=== PATIENT | male | born 1990 | race Caucasian/White ===

== ENCOUNTER 2021-07-28 12:30 | Emergency (ER) | payer OTHER ==
[~2021-07-28] VITALS: Ht 177.8 cm; Wt 97.9 kg
[2021-07-28] MEDS ORDERED: IOHEXOL 300 MG/ML 100ML VIAL. IV ONE (13:30)
[2021-07-28] MEDS ORDERED: CONTRAST GIVEN. MC PRN (13:30)
[2021-07-28] MEDS ORDERED: KETOROLAC 15 MG/ML VIAL. IVP ONE (13:30)
[2021-07-28 13:36] LABS: BASO # 0.1 x10^3/uL (0.0-0.2); BASO % 1 % (0-3); EOS # 0.1 x10^3/uL (0.0-0.7); EOS % 2 % (0-3); HEMATOCRIT 43.8 % (39.0-53.0); HEMOGLOBIN 15.2 g/dL (13.0-17.5); LYMPH # 2.3 x10^3/uL (1.0-4.8); LYMPH % 30 % (24-48); MEAN CORPUSCULAR HEMOGLOBIN 30 pg (25-35); MEAN CORPUSCULAR HGB CONC 35 g/dL (31-37); MEAN CORPUSCULAR VOLUME 88 fL (79-100); MONO # 0.6 x10^3/uL (0.0-1.1); MONO % 8 % (0-9); NEUT # 4.5 x10^3/uL (1.8-7.7); NEUT % 59 % (31-73); PLATELET COUNT 292 x10^3/uL (140-400); RED BLOOD COUNT 5.01 x10^6/uL (4.30-5.70); RED CELL DISTRIBUTION WIDTH 12.3 % (11.5-14.5); WHITE BLOOD COUNT 7.6 x10^3/uL (4.0-11.0)
[2021-07-28 13:49] LABS: CALCIUM 8.9 mg/dL (8.5-10.1); CREATININE 0.9 mg/dL (0.7-1.3); GFR 97.8; POTASSIUM 4.2 mmol/L (3.5-5.1)
[2021-07-28 13:54] LABS: BILIRUBIN,URINE NEGATIVE (NEG); CLARITY,URINE CLEAR; COLOR,URINE YELLOW; NITRITE,URINE NEGATIVE (NEG); PROTEIN,URINE NEGATIVE (NEG-TRACE); UROBILINOGEN,URINE 0.2 mg/dL (0.2 mg/dL)
--- NOTE | 2021-07-28 13:54 | ED.ADGEN ---
Past Medical History Additional Past Medical Histor: TAKES TRAZODONE TO SLEEP Past Surgical History: No Surgical History General Adult EDM: Chief Complaint: MECHANICAL FALL HPI: HPI: Patient is a 31 year old male coming in for left knee and right rib pain after a fall through his ceiling. Patient was in his attic when he went to step or a board should have been but was not and fell through his ceiling. Patient was caught by his upper waist in the ceiling. Is unsure of how he injured his knee. No other complaints, has an abrasion on his back. Tetanus up-to-date patient complaining of pain with taking a deep breath or movement Review of Systems: Review of Systems: All other systems within normal limits except for as noted in the HPI Current Medications: Current Medications Medications (Trade) Dose Ordered Sig/Karri Start Time Stop Time Status Last Admin Dose Admin Fentanyl Citrate (Fentanyl 2ml Vial) 75 mcg 1X ONCE 07/28/21 15:00 07/28/21 15:02 DC Info (CONTRAST GIVEN -- Rx MONITORING) 1 each PRN DAILY PRN 07/28/21 13:30 07/30/21 13:29 Iohexol (Omnipaque 300 Mg/ml) 75 ml 1X ONCE 07/28/21 13:30 07/28/21 13:31 DC 07/28/21 13:30 75 ML Ketorolac Tromethamine (Toradol 15mg Vial) 15 mg 1X ONCE 07/28/21 13:30 07/28/21 13:31 DC 07/28/21 13:33 15 MG Allergies: Allergies: Allergies Uncoded Allergies Type Severity Reaction Last Updated Verified NARCOTICS Adverse Reaction Mild Nausea and Vomiting 07/28/21 Physical Exam: PE: Constitutional: Well developed, well nourished, no acute distress, non-toxic appearance. [] HENT: Normocephalic, atraumatic, bilateral external ears normal, nose normal. [] Eyes: PERRLA, conjunctiva normal, no discharge. [] Neck: No rigidity, supple, no stridor. No C-spine tenderness step-off [] Cardiovascular: Regular rate and rhythm, brisk cap refill [] Lungs & Thorax: Non labored symmetric respirations, no tachypnea or respiratory distress [] Abdomen: Soft, nondistended. Skin: Warm, dry, no erythema, no rash. Abrasion to right back[] Back: Unremarkable, no step-off or deformity spine, tenderness over right posterior Extremities: No deformities, range of motion grossly intact, no lower extremity edema. Tenderness of left knee, no deformity, range of motion intact Neurologic: Alert and oriented X 3, no focal deficits noted. [] Psychologic: Affect normal, judgement normal, mood normal. [] Current Patient Data: Labs: Laboratory Tests Test 07/28/21 12:46 07/28/21 13:36 White Blood Count 7.6 x10^3/uL (4.0-11.0) Red Blood Count 5.01 x10^6/uL (4.30-5.70) Hemoglobin 15.2 g/dL (13.0-17.5) Hematocrit 43.8 % (39.0-53.0) Mean Corpuscular Volume 88 fL (79-100) Mean Corpuscular Hemoglobin 30 pg (25-35) Mean Corpuscular Hemoglobin Concent 35 g/dL (31-37) Red Cell Distribution Width 12.3 % (11.5-14.5) Platelet Count 292 x10^3/uL (140-400) Neutrophils (%) (Auto) 59 % (31-73) Lymphocytes (%) (Auto) 30 % (24-48) Monocytes (%) (Auto) 8 % (0-9) Eosinophils (%) (Auto) 2 % (0-3) Basophils (%) (Auto) 1 % (0-3) Neutrophils # (Auto) 4.5 x10^3/uL (1.8-7.7) Lymphocytes # (Auto) 2.3 x10^3/uL (1.0-4.8) Monocytes # (Auto) 0.6 x10^3/uL (0.0-1.1) Eosinophils # (Auto) 0.1 x10^3/uL (0.0-0.7) Basophils # (Auto) 0.1 x10^3/uL (0.0-0.2) Sodium Level 137 mmol/L (136-145) Potassium Level 4.2 mmol/L (3.5-5.1) Chloride Level 99 mmol/L (98-107) Carbon Dioxide Level 28 mmol/L (21-32) Anion Gap 10 (6-14) Blood Urea Nitrogen 16 mg/dL (8-26) Creatinine 0.9 mg/dL (0.7-1.3) Estimated GFR (Cockcroft-Gault) 97.8 BUN/Creatinine Ratio 18 (6-20) Glucose Level 88 mg/dL (70-99) Calcium Level 8.9 mg/dL (8.5-10.1) Total Bilirubin 0.5 mg/dL (0.2-1.0) Aspartate Amino Transferase (AST) 33 U/L (15-37) Alanine Aminotransferase (ALT) 45 U/L (16-63) Alkaline Phosphatase 87 U/L (46-116) Total Protein 7.7 g/dL (6.4-8.2) Albumin 4.4 g/dL (3.4-5.0) Albumin/Globulin Ratio 1.3 (1.0-1.7) Urine Collection Type Unknown Urine Color Yellow Urine Clarity Clear Urine pH 6.0 (<5.0-8.0) Urine Specific [place] 1.010 (1.000-1.030) Urine Protein Negative mg/dL (NEG-TRACE) Urine Glucose (UA) Negative mg/dL (NEG) Urine Ketones (Stick) Negative mg/dL (NEG) Urine Blood Moderate (NEG) Urine Nitrite Negative (NEG) Urine Bilirubin Negative (NEG) Urine Urobilinogen Dipstick 0.2 mg/dL (0.2 mg/dL) Urine Leukocyte Esterase Negative (NEG) Urine RBC 6-10 /HPF (0-2) Urine WBC 1-4 /HPF (0-4) Urine Squamous Epithelial Cells Few /LPF Urine Bacteria Few /HPF (0-FEW) Urine Sperm Present /HPF Laboratory Tests 07/28/21 12:46 Laboratory Tests 07/28/21 12:46 Vital Signs: Vital Signs Date Time Temp Pulse Resp B/P (MAP) Pulse Ox O2 Delivery O2 Flow Rate FiO2 07/28/21 12:35 98.3 62 14 139/73 (95) 99 Room Air 98.3 EKG: EKG: [] Heart Score: C/O Chest Pain: No Risk Factors: Risk Factors: DM, Current or recent (<one month) smoker, HTN, HLP, family history of CAD, obesity. Risk Scores: Score 0 - 3: 2.5% MACE over next 6 weeks - Discharge Home Score 4 - 6: 20.3% MACE over next 6 weeks - Admit for Clinical Observation Score 7 - 10: 72.7% MACE over next 6 weeks - Early Invasive Strategies Radiology/Procedures: Radiology/Procedures: [place] [phone] IMAGING REPORT Signed PATIENT: KIMBERLY MCGREGOR ACCOUNT: [id number] : 1990 LOCATION: ER AGE: 31 SEX: M EXAM STATUS: PRE ER ORD. PHYSICIAN: ISAÍAS ACUNA MD REASON: injury PROCEDURE: KNEE LEFT 3V Examination: 3 views of the left knee HISTORY: History of injury COMPARISON: None available FINDINGS: There is no acute fracture or dislocation identified. The alignment of the knee joint grossly appears unremarkable. IMPRESSION: No acute osseous findings. Electronically signed by: Martinez Joseph MD (07/28/2021 2:05 PM) [id number] DICTATED and SIGNED BY: MARTINEZ JOSEPH MD DATE: 07/28/21 [id number] [][id number] [place] [address] IMAGING REPORT Signed PATIENT: KIMBERLY MCGREGOR ACCOUNT: [id number] : 1990 LOCATION: ER AGE: 31 SEX: M EXAM STATUS: REG ER ORD. PHYSICIAN: ISAÍAS ACUNA MD REASON: trauma, blunt PROCEDURE: CT CHEST ABD PELVIS W/CONTRAST CT CHEST+ABD+PELVIS W History: Trauma. Pain. Technique: CT of the chest, abdomen and pelvis were performed with intravenous contrast. Coronal and sagittal reconstructions were performed. Exposure: One or more of the following individualized dose reduction techniques were utilized for this examination: 1. Automated exposure control 2. Adjustment of the mA and/or kV according to patient size 3. Use of iterative reconstruction technique. Comparison: None Findings: Chest: No pathologic lymphadenopathy. No aortic injury or dissection. No consolidation or pleural effusion. No pneumothorax. Abdomen and pelvis: Tiny left superior hepatic hypodensity, likely cyst. The spleen, adrenal glands, pancreas and gallbladder are unremarkable. No biliary ductal dilatation. Patent portal veins. No renal calculus. No hydronephrosis. Normal appearance of the urinary bladder. Normal appendix. No evidence of bowel obstruction. No pathologic lymphadenopathy. No ascites. Bones: No pathologic osseous lesions. Multilevel Schmorl's nodes. Impression: Chest CT: 1. No acute thoracic pathology. Abdomen and pelvis CT: 1. No acute abdominal or pelvic pathology. Electronically signed by: Ishaan Donohue DO (07/28/2021 3:21 PM) [facility] DICTATED and SIGNED BY: ISHAAN DONOHUE DO DATE: 07/28/21 [id number] Course & Med Decision Making: Course & Med Decision Making Pertinent Labs and Imaging studies reviewed. (See chart for details) [] Dragon Disclaimer: Dragon Disclaimer: This electronic medical record was generated, in whole or in part, using a voice recognition dictation system. Departure Departure Impression: Primary Impression: Left rib fracture Disposition: HOME / SELF CARE / HOMELESS Condition: STABLE Patient Instructions: Incentive Spirometer, Rib Fracture Scripts Hydrocodone Bit/Acetaminophen (HYDROCODONE-APAP 5-325 ) 1 Tab Tablet 1 TAB PO PRN Q6HRS PRN for PAIN for 5 Days, #15 TAB 0 Refills Prov: ISAÍAS ACUNA MD 07/28/21 ISAÍAS ACUNA MD Jul 28, 2021 13:54
[2021-07-28 13:55] LABS: ALBUMIN 4.4 g/dL (3.4-5.0); ALBUMIN/GLOBULIN RATIO 1.3 (1.0-1.7); TOTAL BILIRUBIN 0.5 mg/dL (0.2-1.0); TOTAL PROTEIN 7.7 g/dL (6.4-8.2)
--- NOTE | 2021-07-28 14:08 | RAD ---
Examination: 3 views of the left knee HISTORY: History of injury COMPARISON: None available FINDINGS: There is no acute fracture or dislocation identified. The alignment of the knee joint grossly appears unremarkable. IMPRESSION: No acute osseous findings. Electronically signed by: Martinez Joseph MD (07/28/2021 2:05 PM) [id number]
[2021-07-28 14:15] LABS: BACTERIA,URINE FEW /HPF (0-FEW); SPERM,URINE PRESENT /HPF
[2021-07-28] MEDS ORDERED: fentaNYL PF VIAL 100 MCG/2 ML VIAL IVP ONE (15:00)
--- NOTE | 2021-07-28 15:23 | RAD ---
CT CHEST+ABD+PELVIS W History: Trauma. Pain. Technique: CT of the chest, abdomen and pelvis were performed with intravenous contrast. Coronal and sagittal reconstructions were performed. Exposure: One or more of the following individualized dose reduction techniques were utilized for thi s examination: 1. Automated exposure control 2. Adjustment of the mA and/or kV according to patient size 3. Use of iterative reconstruction technique. Comparison: None Findings: Chest: No pathologic lymphadenopathy. No aortic injury or dissection. No consolidation or pleural eff usion. No pneumothorax. Abdomen and pelvis: Tiny left superior hepatic hypodensity, likely cyst. The spleen, adrenal glands, pancreas and gallbladder are unremarkable. No biliary ductal dilatation. Patent portal veins. No farhad l calculus. No hydronephrosis. Normal appearance of the urinary bladder. Normal appendix. No evidence of bowel obstruction. No pathologic lymphadenopathy. No ascites. Bones: No pathologic osseous lesions. Multilevel Schmorl's nodes. Impression: Chest CT: 1. No acute thoracic pathology. Abdomen and pelvis CT: 1. No acute abdominal or pelvic pathology. Electronically signed by: Ishaan Donohue DO (07/28/2021 3:21 PM) [facility]
[2021-07-28] MEDS ORDERED: HYDR-2761 PO (15:54)
[2021-07-28 16:19] VITALS: BP 127/66
--- NOTE | 2021-07-31 00:11 | EKG ---
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
--- NOTE | 2021-08-07 15:57 | EKG ---
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
== END 2021-07-28 16:35 | disposition home or self-care (01) ==
LOC: ER 12:30
DX: S22.32XA Fracture of one rib, left side, initial encounter for closed fracture (principal); S20.419A Abrasion of unspecified back wall of thorax, initial encounter; M25.562 Pain in left knee; Z88.5 Allergy status to narcotic agent; W18.39XA Other fall on same level, initial encounter; Y93.89 Activity, other specified; Y92.89 Other specified places as the place of occurrence of the external cause; Y99.8 Other external cause status
CPT/HCPCS: 36415; 71260; 73562; 74177; 80053; 81001; 85025; 93005; 96374; 96375; 99285; J1885; J3010; Q9967